=== PATIENT | female | born 1945 | race Caucasian/White ===

== ENCOUNTER → 2017-01-10 | Day surgery (SDC) | payer MEDICARE, BC ==
[~2017-01-10] MED LIST: ACETAMINOPHEN PO; AMLODIPINE BESYL5 MG PO; ANTIVERT PO; ASPIRIN PO; BACTRIM DS TABL1 TA1 PO; BAYER CHEWABLE81 MG PO; BISOPROLOL-HCTZ1 TA2 PO; CENTRUM PO; FISH OIL 1,0001 CAP PO; FISH OIL DR 1,1 EACH PO; FLAGYL PO; FLAGYL250 M1 PO; FLONASE16 GM; HCTZ PO; HYDROCHLOROTHIA25 MG PO; K-TAB ER20 MEQ PO; KCL PO; LEVAQUIN PO; LEVAQUIN250 MG PO; LOPID600 MG PO; MAGNESIUM400 M1; MULTI VITAMIN1 EACH PO; MULTIVITAMIN W/1 TAB PO; NITROGYLCERIN SUBLINGUAL; PHENERGAN12.5 MG PO; PRILOSEC PO; PRINIVIL40 MG PO; PROBIOTIC1 EAC3 PO; PROTONIX PO; TRICOR PO; VICODIN 5/500 T1 TAB PO; VOLTAREN75 MG PO; XYZAL5 MG PO
--- NOTE | ~2017-01-10 | OR ---
Unit #: [id number] #: [id number] Patient: MONTSE COOPER [id number] [address] [place], [place] [address] [id number] MR#: [id number] NAME: MONTSE COOPER ROOM: Date of Procedure: 01/10/2017 Admission Date: 01/10/2017 Surgeon: Ian Armando Jr., M.D. : 1945 Attending Physician: Ian Armando Jr., M.D. Primary Care Physician: Yudy Hassan M.D. OPERATIVE REPORT INDICATIONS FOR PROCEDURE The patient is a 70-year-old white female with a known past history of colon polyps. Last colonoscopy was over 2 years ago. These were benign, but it was felt she needed a repeat followup colonoscopy to rule out recurrent polyps and/or occult malignancy. The patient is brought in this time at her request for colonoscopy. She understands the procedure including risks, including that of perforation and bleeding, and consents. PREOPERATIVE DIAGNOSIS Past history of colon polyps, rule out recurrence, rule out occult malignancy. POSTOPERATIVE DIAGNOSES Only a fair prep with moderate amount of stool throughout the entire length of the colon. There was one small polyp noted in the sigmoid at approximately 30 cm, which was biopsied and diverticulosis of left colon. ANESTHESIA MAC anesthesia. PROCEDURE PERFORMED Flexible colonoscopy to the cecum with biopsy of a small polyp at 30 cm. DESCRIPTION OF PROCEDURE The patient was positioned in [place] position with left side down. After being given MAC anesthesia, digital rectal examination was performed, which revealed no palpable mass or tenderness. No blood or stool in the rectal ampulla. The Olympus colonoscope was advanced through the anal canal up the rectum and retroflexed down to the area of the anorectal region. There was no evidence of any fissures. No significant internal hemorrhoids. The scope was then straightened and advanced up the rectosigmoid, where there was some liquid stool present into the sigmoid and at approximately 30 cm, there was a small adenomatous polyp, approximately 1 mm in diameter, which was biopsied and removed without bleeding or problems. The scope was then advanced up in the proximal sigmoid and descending colon where there were multiple diverticula without evidence of diverticulitis. Again, there was some liquid stool throughout the entire length of the colon. The scope was advanced around the splenic flexure in the transverse colon, around the hepatic flexure in the ascending colon, down to the area of the cecum. The light from the tip of the scope could be seen transilluminating through right lower quadrant abdominal wall area. Multiple attempts advancing the scope up the distal Unit #: [id number] #: [id number] Patient: MONTSE COOPER were unsuccessful. The scope was slowly removed. There were no tumors except for the one polyp. No other polyps, no cancer, no AVMs. No evidence any colitis or acute diverticulitis. The caliber of the colon appeared normal throughout except for noting only a fair prep with liquid stool throughout the entire length of the colon that could have obscured small polyps. There was the one polyp described above and diverticulosis of the left colon. The scope was removed. The patient tolerated the procedure well and discharged in satisfactory condition. Dictated by... Ian Armando Jr., M.Disha. IRENE/miguel ángel TD: 01/10/2017 08:13 JOB #: [id number] OPERATIVE REPORT Page 1 of 1 X Ian Armando MD X PROCEDURE OPERATIVE NOTE
== END | disposition home or self-care (01) ==
LOC: COPS 05:39
DX: Z12.11 Encounter for screening for malignant neoplasm of colon (principal); K63.5 Polyp of colon; K57.30 Diverticulosis of large intestine without perforation or abscess without bleeding; J45.909 Unspecified asthma, uncomplicated; K21.9 Gastro-esophageal reflux disease without esophagitis; M19.90 Unspecified osteoarthritis, unspecified site; E89.0 Postprocedural hypothyroidism; I10 Essential (primary) hypertension; E78.5 Hyperlipidemia, unspecified; Z86.010 Personal history of colon polyps; Z90.710 Acquired absence of both cervix and uterus; Z79.82 Long term (current) use of aspirin; Z79.899 Other long term (current) drug therapy; Z87.19 Personal history of other diseases of the digestive system
CPT/HCPCS: 88305